=== PATIENT | female | born 1955 | race Caucasian/White ===

== ENCOUNTER 2018-05-01 15:30 | Emergency (ER) | payer OTHER ==
[~2018-05-01] VITALS: Ht 170.2 cm; Wt 116.1 kg
[~2018-05-01 15:30] MED LIST: AMLO10TA6 PO; ASCO500T2 PO; CALC1TAB PO; CETI10TA22 PO; CLOT15CR4 TP; FERR325T14 PO; GABA-586 PO; GUAI-40 PO; HYDR-2758 PO; HYDR25TA9 PO; LOSA100T2 PO; MELO7.5T29 PO; METO10TA81 PO; MONT10TA6 PO; OXYC-323 PO; PANT40TA5 PO; PENT100C PO; TIZA4TAB PO; TOLT4CAP PO; TRAZ150T49 PO; VITA1TAB19 PO; WARF1TAB74 PO
[2018-05-01 16:17] VITALS: BP 129/72
--- NOTE | 2018-05-01 17:27 | PHYS DOC ---
Past Medical History Past Medical History: Asthma, Fibromyalgia, Hypertension Additional Past Medical Histor: CYSTITIS Past Surgical History: , Hysterectomy, Knee Replacement Alcohol Use: None Drug Use: None Adult General Chief Complaint Chief Complaint: EYE PROBLEMS HPI HPI Patient is a 62 year old female who presents to the ER with complaints of pain and bruising below R eye after she walked into a metal shelf at work today. Pt denies any LOC, nausea, vomiting, dizziness, or vision changes. Currently, she denies any pain at rest states that the area is only tender to touch. She states that her glasses hit the shelf first but denies any breakage of the glasses. Review of Systems Review of Systems Constitutional: Denies fever or chills [] Eyes: Denies change in visual acuity, redness, or eye pain, reports bruising and tenderness below R eye see HPI [] GI: Denies nausea or vomiting Musculoskeletal: Denies back pain or joint pain [] Integument: Denies rash or skin lesions [] Neurologic: Denies headache, focal weakness or sensory changes [] All other systems were reviewed and found to be within normal limits, except as documented in this note. Allergies Allergies Allergies Coded Allergies Type Severity Reaction Last Updated Verified Sulfa (Sulfonamide Antibiotics) Allergy Intermediate HIVES 01/11/15 Yes adhesive Allergy Intermediate SKIN IRRITATION 01/11/15 Yes chlorhexidine Allergy Intermediate Rash 01/11/15 Yes codeine Allergy Intermediate ITCHING 01/11/15 Yes lisinopril Adverse Reaction Severe CHRONIC COUGH 01/11/15 Yes oxybutynin Adverse Reaction Severe SWELLING OF HANDS AND FEET 01/11/15 Yes Physical Exam Physical Exam Constitutional: Well developed, well nourished, no acute distress, non-toxic appearance. [] HENT: Normocephalic, atraumatic, bilateral external ears normal, nose normal. [] Eyes: PERRLA, EOMI, conjunctiva normal, no discharge, bruising below R eye, tenderness with palpation of R lateral orbit and R orbital floor. [] Neck: Normal range of motion, supple, no stridor. [] Skin: Warm, dry, no erythema, no rash. [] Neurologic: Alert and oriented X 3, normal motor function, normal sensory function, no focal deficits noted. [] Psychologic: Affect normal, judgement normal, mood normal. [] Current Patient Data Vital Signs Vital Signs Date Time Temp Pulse Resp B/P (MAP) Pulse Ox O2 Delivery O2 Flow Rate FiO2 05/01/18 16:17 98.0 70 16 129/72 (91) 97 Room Air 98.0 EKG EKG [] Radiology/Procedures Radiology/Procedures PROCEDURE: CT HEAD WO CONTRAST Examination: CT HEAD WO CONTRAST, CT ORBITS WO CONTRAST History: ran into metal lorri, pain Comparison/Correlation: None Findings: Axial images of the head and orbits were obtained. Sagittal and coronal reformatted images of the orbits were provided. Ventricles are normal size. No intracranial hemorrhage, shift, or mass effect. Mild atrophy is present. Globes and optic nerves are unremarkable. No depressed fracture or bony destruction. Atlantoaxial joint degenerative changes are present. Facet joint degenerative changes on the left are present at C2-3. Impression: No intracranial hemorrhage. No depressed fracture. Number no depressed fracture. Globes and optic nerves are unremarkable.[] Course & Med Decision Making Course & Med Decision Making Pertinent Labs and Imaging studies reviewed. (See chart for details) Dx: R eye contusion Apply ice packs to area as needed for comfort. Tylenol or ibuprofen as needed for pain. Follow up with PCP in 1-2 days, return to ER if symptoms worsen. Patient verbalized an understanding of home care, medications, follow-up, and return to ED instructions and was in agreement with the plan of care. [] Dragon Disclaimer Dragon Disclaimer This electronic medical record was generated, in whole or in part, using a voice recognition dictation system. Departure Departure Impression: Primary Impression: Contusion of right orbit Disposition: HOME, SELF-CARE Condition: STABLE Referrals: HEAVEN FLETCHER MD (PCP) Patient Instructions: Contusion, [id number] Additional Instructions: Apply ice packs to area as needed for comfort. Tylenol or ibuprofen as needed for pain. Follow up with PCP in 1-2 days, return to ER if symptoms worsen. Problem Qualifiers Primary Impression: Contusion of right orbit Encounter type: initial encounter Qualified Codes: S05.11XA - Contusion of eyeball and orbital tissues, right eye, initial encounter RACHID AMAYA APRN May 01, 2018 17:27
--- NOTE | 2018-05-01 17:50 | RAD ---
Examination: CT HEAD WO CONTRAST, CT ORBITS WO CONTRAST History: ran into metal lorri, pain Comparison/Correlation: None Findings: Axial images of the head and orbits were obtained. Sagittal and coronal reformatted images of the orbits were provided. Ventricles are normal size. No intracranial hemorrhage, shift, or mass effect. Mild atrophy is present. Globes and optic nerves are unremarkable. No depressed fracture or bony destruction. Atlantoaxial joint degenerative changes are present. Facet joint degenerative changes on the left are present at C2-3. Impression: No intracranial hemorrhage. No depressed fracture. Number no depressed fracture. Globes and optic nerves are unremarkable. Electronically signed by: Nick Bruno MD (05/01/2018 5:46 PM) [facility]
== END 2018-05-01 18:06 | disposition home or self-care (01) ==
LOC: ER 15:30
DX: S05.11XA Contusion of eyeball and orbital tissues, right eye, initial encounter (principal); J45.909 Unspecified asthma, uncomplicated; M79.7 Fibromyalgia; I10 Essential (primary) hypertension; Z88.2 Allergy status to sulfonamides; Z88.8 Allergy status to other drugs, medicaments and biological substances; Z88.5 Allergy status to narcotic agent; W22.01XA Walked into wall, initial encounter; Y93.89 Activity, other specified; Y92.89 Other specified places as the place of occurrence of the external cause; Y99.0 Civilian activity done for income or pay
CPT/HCPCS: 70450; 70480; 99284-25

== ENCOUNTER → 2020-11-29 | Outpatient (CLI) | payer OTHER ==
[~2020-11-29] MED LIST changes: +AMLO-187 PO; -AMLO10TA6 PO; -ASCO500T2 PO; +ASCO500T4 PO; -CETI10TA22 PO; +CETI10TA74 PO; +CLOT15CR23 TP; -CLOT15CR4 TP; -GABA-586 PO; +GABA300C18 PO; +HYDR-2145 PO; -HYDR-2758 PO; +HYDR-2761 PO; -HYDR25TA9 PO; +MONT10TA49 PO; -MONT10TA6 PO; -OXYC-323 PO; +OXYC1TAB15 PO; -PANT40TA5 PO; +PANT40TA77 PO; -TIZA4TAB PO; +TIZA4TAB2 PO; +WARF1TAB2 PO; -WARF1TAB74 PO
--- NOTE | 2020-11-30 11:36 | SLEEP ---
DATE OF STUDY: 11/29/2020 PRIMARY CARE PHYSICIAN: Dr. Heaven Clarke. REFERRING PHYSICIAN: Dr. Taye Sheppard. The patient is a 65-year-old who weighs 240 pounds with a BMI of 38. The patient has a previous sleep study on 10/26/2020 and was found to have severe HOWARD at an AHI of 48 per hour. The patient also had nocturnal hypoxia. The patient was referred for in-lab CPAP titration study. During the night study, the patient spent 333 minutes in bed and slept for 289 minutes with a sleep efficiency of 87%. Sleep latency was 9 minutes with a REM latency of 3 and 14 minutes. Sleep architecture showed normal stage I sleep, reduced stage II sleep, increased slow wave sleep, which is 55% of total sleep time and normal REM sleep. EKG monitoring revealed normal sinus rhythm. No sustained arrhythmias observed. No significant PLMs seen. The patient was started on CPAP at 5 cm water and titrated up to 14 cm of water. At the final pressure, the patient slept for 167 minutes. The patient had supine sleep, but no REM sleep. The patient's AHI was reduced to 0 per hour and oxygen saturation remained above 90%. The patient used a medium size full face mask. IMPRESSION: 1. Severe sleep apnea diagnosed by previous sleep study. 2. Nocturnal hypoxia, resolved with CPAP. 3. No clinically significant PLMS. RECOMMENDATIONS: 1. CPAP at 14 cm water completely eliminated the patient's sleep apnea and should be used on a nightly basis. 2. Follow up in four to six weeks to assess compliance with CPAP and to document clinical improvement. 3. Weight loss is advised. 4. Avoid [employer] depressants. 5. Cautioned regarding driving until symptoms of sleep apnea resolve with the use of CPAP. ZACH DR: Calin TID: [id number] CC: HEAVEN CLARKE MD, TAYE SHEPPARD MD
== END ==
LOC: RT 19:21
PROVIDERS: ATTEND Internal Medicine Pulmonary Disease
DX: G47.30 Sleep apnea, unspecified (principal); G47.34 Idiopathic sleep related nonobstructive alveolar hypoventilation; R06.83 Snoring
CPT/HCPCS: 95811